=== PATIENT | male | born 1995 | race Caucasian/White ===

== ENCOUNTER 2016-07-26 12:36 | Outpatient (CLI) | payer OTHER ==
--- NOTE | 2016-07-26 16:27 | DIAGNOSTIC IMAGING REPORT ---
PROCEDURE: XR SHOULDER INJECTION (PRE MR) INDICATION: Left ulnar pain. TECHNIQUE: The patient was advised of the usual risks and complications including infection, bleeding and allergy. Supine RPO position. Following sterile preparation and 1% lidocaine anesthetic, fluoroscopic guidance (4.6 of minutes, 727.23 mGy) was utilized to place a 22-gauge spinal needle into the ventral left glenohumeral joint. A 10.1 mL solution (2.5 mL Isovue 200, 2.5 mL 1% lidocaine, 2.5 mL 0.5% Marcaine, 2.5 mL normal saline, 0.1 mL gadolinium) was infused. Subsequently, 2 mL 40 mg/mL Kenalog was infused and the needle was withdrawn. COMPARISON: None. FINDINGS: Nine AP views in neutral, internal and external rotation. Confirmation of intraarticular injection. Arthrogram is normal. The patient tolerated the procedure reasonably well and was transferred to MRI in satisfactory condition with instructions to resume routine activity the following day, and to call for any untoward symptoms (increasing pain/swelling). IMPRESSION: 1. Successful fluoroscopically guided diagnostic/therapeutic injection of the left glenohumeral joint (pre MRI). 2. Negative arthrogram of the left shoulder. 3. MR arthrography is pending.
--- NOTE | 2016-07-26 16:50 | DIAGNOSTIC IMAGING REPORT ---
PROCEDURE: MR UPPER EXT JOINT W/CONT-LT INDICATION: Left shoulder pain. TECHNIQUE: Intraarticular contrast/gadolinium injected earlier in the day. T1, FAT-SAT PD, and FAT-SAT T1 sagittal oblique images. PD, FAT-SAT PD, and FAT-SAT T1 coronal oblique images. T1, FAT-SAT T1, and FAT-SAT PD axial images. COMPARISON: Comparison made to conventional arthrogram earlier today (07/26/2016). FINDINGS: There is mild to moderate caudal and positive angulation of type 2 acromion which results in mild to moderate impingement. There is no evidence of coracoid impingement (12 mm). Rotator cuff is normal and there is no evidence of tendinosis or rotator cuff tear. Biceps tendon is normal. Left acromioclavicular joint is normal. There is an oblique tear of the anterior superior cartilaginous labrum (fat sat T1 axial images 10-13) with probable tear of the superior labrum coronal image 8). In addition, there is an oblique tear of the posterior mid glenoid labrum (fat sat T1 axial images 12 - 13). Superior, middle, and inferior glenohumeral ligaments are normal. IMPRESSION: 1. Mild to moderate caudal and positive angulation of type 2 acromion results in mild to moderate impingement. However, rotator cuff appears normal, and there is no evidence of tendinosis or rotator cuff tear. 2. There are tears of the anterior superior cartilaginous labrum, posterior mid cartilaginous labrum, with probable tear of the superior labrum (SLAP lesion). 3. Normal biceps tendon.
== END 2016-07-26 23:00 ==
LOC: XR SRH 12:36
PROC: BP191ZZ Fluoroscopy of Left Shoulder using Low Osmolar Contrast (ICD-10-PCS; principal; 2016-07-26)
DX: M75.42 Impingement syndrome of left shoulder (principal); S73.192A Other sprain of left hip, initial encounter